=== PATIENT | female | born 2000 | race Caucasian/White ===

== ENCOUNTER 2023-06-02 12:26 | Emergency (ER) | payer BC ==
[2023-06-02] MEDS ORDERED: Sodium Chloride 0.9% 10 ML Syringe FLUSH PRN (12:54)
[2023-06-02] MEDS ORDERED: Sodium Chloride 0.9% 1,000 ML IV STA (12:54)
[2023-06-02 13:45] LABS: BASOPHILS ABSOLUTE AUTO 0.1 K/mm3 (0.0-0.2); BASOPHILS PERCENT AUTO 0.4 % (0.0-1.0); HEMATOCRIT 42.4 % (37.0-47.0); HEMOGLOBIN 14.2 gm/dl (12.0-16.0); IMMATURE GRAN ABSOLUTE AUTO 0.05 K/mm3 (0.00-0.05); IMMATURE GRAN PERCENT AUTO 0.3 % (0.0-0.4); LYMPHOCYTES ABSOLUTE AUTO 1.6 K/mm3 (1.0-4.8); LYMPHOCYTES PERCENT AUTO 10.1 % (24.0-44.0); MEAN CORPUSCULAR HEMOGLOBIN 29.6 pg (28.0-32.0); MEAN CORPUSCULAR HGB CONC 33.5 g/dl (32.0-36.0); MEAN CORPUSCULAR VOLUME 88.5 fl (83.0-99.0); MEAN PLATELET VOLUME 10.3 fl (9.4-12.3); MONOCYTES ABSOLUTE AUTO 1.3 K/mm3 (0.0-0.8); MONOCYTES PERCENT AUTO 8.5 % (0.0-8.0); NEUTROPHILS ABSOLUTE AUTO 12.7 K/mm3 (1.8-7.7); NEUTROPHILS PERCENT AUTO 80.7 % (41.0-71.0); PLATELET COUNT,PLT 251 K/mm3 (150-400); RED BLOOD CELL COUNT 4.79 M/mm3 (4.10-5.30); WHITE BLOOD CELL COUNT,WBC 15.79 K/mm3 (3.9-11.3)
[2023-06-02 14:09] LABS: A/G RATIO 0.8 (1-2); ALBUMIN 3.6 g/dl (3.4-5.0); ANION GAP 15.1 (5-15); BILIRUBIN TOTAL 0.8 mg/dL (0.2-1.0); C-REACTIVE PROTEIN 10.1 mg/dL (<1.0); CALCIUM 9.2 mg/dL (8.5-10.1); EST CRCL DRUG DOSING (CG) 87.51 mL/min; POTASSIUM,K 4.1 mEq/L (3.5-5.1); PROTEIN TOTAL,TP 8.1 g/dl (6.4-8.2)
[2023-06-02 14:41] LABS: CORONAVIRUS COVID-19 NAA NEGATIVE (NEGATIVE); INFLUENZA A NAA NEGATIVE (NEGATIVE); RESPIRATORY SYNCYTIAL VIR NAA NEGATIVE (NEGATIVE)
[2023-06-02] MEDS ORDERED: Amoxicillin/Clavulanate K 875-125 MG Tab PO ONE (15:16)
[2023-06-02 15:22] LABS: APPEARANCE,URINE SLT CLOUDY (Clear); BILIRUBIN,URINE 1+ (Negative); COLOR,URINE YELLOW (Yellow); GLUCOSE,URINE NEGATIVE (Negative); KETONES,URINE 4+ (Negative); LEUKOCYTE ESTERASE,URINE NEGATIVE (Negative); NITRITE,URINE NEGATIVE (Negative); OCCULT BLOOD,URINE TRACE-INTACT (Negative); PROTEIN,URINE 1+ (Negative); UROBILINOGEN,URINE 0.2 (0.2-1.0)
[2023-06-02 15:43] LABS: BACTERIA,URINE MODERATE /hpf (FEW); MUCUS,URINE MODERATE /hpf (FEW); RBC,URINE 0-5 /hpf (0-5); WBC,URINE 0-5 /hpf (0-5)
== END 2023-06-02 15:42 | disposition home or self-care (01) ==
LOC: JD.ED 12:26
DX: J02.0 Streptococcal pharyngitis (principal); Z20.822 Contact with and (suspected) exposure to COVID-19
CPT/HCPCS: 0241U; 36415; 80053; 81001; 81025; 85025; 86140; 87651; 99283; A9270; J3490; J7030

== ENCOUNTER 2023-09-12 06:13 | Emergency (ER) | payer BC ==
[2023-09-12 07:09] LABS: BASOPHILS ABSOLUTE AUTO 0.1 K/mm3 (0.0-0.2); BASOPHILS PERCENT AUTO 0.8 % (0.0-1.0); EOSINOPHILS ABSOLUTE AUTO 0.1 K/mm3 (0.0-0.4); EOSINOPHILS PERCENT AUTO 1.7 % (0.0-6.0); HEMATOCRIT 43.5 % (37.0-47.0); HEMOGLOBIN 14.9 gm/dl (12.0-16.0); IMMATURE GRAN ABSOLUTE AUTO 0.01 K/mm3 (0.00-0.05); IMMATURE GRAN PERCENT AUTO 0.1 % (0.0-0.4); LYMPHOCYTES ABSOLUTE AUTO 2.3 K/mm3 (1.0-4.8); LYMPHOCYTES PERCENT AUTO 30.1 % (24.0-44.0); MEAN CORPUSCULAR HEMOGLOBIN 30.2 pg (28.0-32.0); MEAN CORPUSCULAR HGB CONC 34.3 g/dl (32.0-36.0); MEAN CORPUSCULAR VOLUME 88.1 fl (83.0-99.0); MEAN PLATELET VOLUME 9.4 fl (9.4-12.3); MONOCYTES ABSOLUTE AUTO 0.6 K/mm3 (0.0-0.8); MONOCYTES PERCENT AUTO 8.4 % (0.0-8.0); NEUTROPHILS ABSOLUTE AUTO 4.4 K/mm3 (1.8-7.7); NEUTROPHILS PERCENT AUTO 58.9 % (41.0-71.0); RED BLOOD CELL COUNT 4.94 M/mm3 (4.10-5.30)
[2023-09-12 07:11] LABS: APPEARANCE,URINE CLOUDY (Clear); BILIRUBIN,URINE NEGATIVE (Negative); COLOR,URINE YELLOW (Yellow); GLUCOSE,URINE NEGATIVE (Negative); KETONES,URINE NEGATIVE (Negative); LEUKOCYTE ESTERASE,URINE TRACE (Negative); NITRITE,URINE NEGATIVE (Negative); OCCULT BLOOD,URINE NEGATIVE (Negative); PROTEIN,URINE NEGATIVE (Negative); UROBILINOGEN,URINE 0.2 (0.2-1.0)
[2023-09-12 07:13] LABS: PLATELET COUNT,PLT 358 K/mm3 (150-400)
[2023-09-12 07:18] LABS: BACTERIA,URINE MODERATE /hpf (FEW); MUCUS,URINE MANY /hpf (FEW); WBC,URINE 20-30 /hpf (0-5)
[2023-09-12 07:35] LABS: A/G RATIO 0.9 (1-2); ALBUMIN 3.9 g/dl (3.4-5.0); ANION GAP 15.9 (5-15); BILIRUBIN TOTAL 0.3 mg/dL (0.2-1.0); BUN/CREATININE RATIO 13.8 (14-18); CREATININE 0.8 mg/dL (0.55-1.02); EST CRCL DRUG DOSING (CG) 108.44 mL/min; MAGNESIUM 1.7 mg/dL (1.8-2.4); POTASSIUM,K 3.9 mEq/L (3.5-5.1); PROTEIN TOTAL,TP 8.4 g/dl (6.4-8.2)
[2023-09-12] MEDS: Ketorolac 30 MG/ML SDV IVPUSH ONE (07:40)
[2023-09-12] MEDS: Ondansetron 4 MG/2 ML SDV IVPUSH ONE (07:40)
[2023-09-12] MEDS: Sodium Chloride 0.9% 10 ML Syringe FLUSH PRN ×2 (07:47→08:25)
[2023-09-12] MEDS: Iopamidol 612 MG/ML 100 ML Bottle IVPUSH ONE (08:25)
== END 2023-09-12 10:57 | disposition home or self-care (01) ==
LOC: JD.ED 06:13
DX: N30.00 Acute cystitis without hematuria (principal)
CPT/HCPCS: 36415; 74177; 76857; 80053; 81001; 81025; 83735; 85025; 87086; 96374; 96375; 99284; J1885; J2405; J3490; Q9967